=== PATIENT | female | born 1945 | race Two or more races ===

== ENCOUNTER 2021-02-25 15:19 | Inpatient (IN) | payer MEDICAID ==
[~2021-02-25] VITALS: Ht 165.1 cm; Wt 59.9 kg
[2021-02-25] MEDS ORDERED: SODIUM CHLORIDE 0.9% 1,000 ML IV ONE (16:45)
[2021-02-25 19:12] LABS: BASOPHILS % 0.8 % (0.0-2.0); EOSINOPHILS % 0.3 % (0.0-5.0); HEMATOCRIT. 39.3 % (36.0-48.0); HEMOGLOBIN. 13.7 g/dL (12.0-16.0); LYMPHOCYTES % 27.6 % (20.0-50.0); MEAN CORPUSCULAR HEMOGLOBIN 31.2 pg (28.0-32.0); MEAN CORPUSCULAR VOLUME 89.6 fL (81.0-99.0); MEAN PLATELET VOLUME 10.1 fl (7.4-10.4); MONOCYTES % 9.7 % (2.0-8.0); NEUTROPHILS % 61.6 % (40.0-76.0); PLATELET 193 x1000/uL (130-400); RED BLOOD CELL COUNT 4.38 mill/uL (4.2-5.4); RED CELL DISTRIBUTION WIDTH 14.2 % (11.6-14.6)
[2021-02-25 19:20] LABS: CHLORIDE 95 mEq/L (98-107)
[2021-02-25 21:58] LABS: CLARITY URINE CLEAR (CLEAR); COLOR URINE ORANGE (YELLOW); KETONES URINE TRACE (NEGATIVE); LEUKOCYTE ESTERASE URINE 1+ (NEGATIVE); NITRITE URINE NEGATIVE (NEGATIVE); OCCULT BLOOD URINE 1+ (NEGATIVE); PH URINE 6.5 (4.5-8.0); PROTEIN URINE TRACE (NEGATIVE)
[2021-02-25] MEDS ORDERED: CEFTRIAXONE 1 G PREMIX 50 ML IV ONE (22:15)
[2021-02-26 04:02] LABS: INR 1.1; PROTHROMBIN TIME 11.7 sec (9.6-11.0)
[2021-02-26] MEDS ORDERED: HEPARIN 25,000 UNITS PREMIX 250 ML IV PRN (04:45)
[2021-02-26] MEDS ORDERED: HEPARIN 5000 UNITS/ML VIAL IV NR (04:45)
[2021-02-26 09:00] VITALS: BP 110/70
[2021-02-26 09:05] VITALS: BP 110/70
[2021-02-26] MEDS ORDERED: ONDANSETRON HCL 4MG/2ML INJ IV PRN (09:15)
[2021-02-26] MEDS ORDERED: ACETAMINOPHEN 325MG TABLET PO PRN (09:15)
[2021-02-26] MEDS ORDERED: POTASSIUM CHLORIDE INJ 40 MEQ in DEXT 5% WATER 250 ML IV SCH (11:00)
[2021-02-26 12:00] VITALS: BP 125/68
[2021-02-26] MEDS ORDERED: HEPARIN BOLUS PRN aPTT <30 IV (12:00)
[2021-02-26] MEDS ORDERED: HEPARIN BOLUS PRN aPTT 30-44 IV (12:00)
[2021-02-26] MEDS ORDERED: ASPIRIN 81MG EC TABLET PO SCH (12:15)
[2021-02-26] MEDS ORDERED: LEVOTHYROXINE SODIUM 50MCG TABLET PO SCH (14:00)
[2021-02-26 16:00] VITALS: BP 117/63
[2021-02-26 20:00] VITALS: BP 114/61
[2021-02-26] MEDS ORDERED: METOPROLOL TARTRATE 25MG TABLET PO SCH (21:00)
[2021-02-26 21:01] VITALS: BP 114/61
== END 2021-02-26 22:10 | disposition short-term general hospital (02) | DRG 190 ==
LOC: ER 15:19 → MICUSO 02-26 02:05 → EDBEDREQ 02-26 02:09 → EDBEDREQSVC 02-26 02:09 → EDBEDREQDT 02-26 02:09 → EDBEDREQTM 02-26 02:09 → 8WST 02-26 07:26
PROVIDERS: ADMIT Internal Medicine Nephrology; ATTEND Internal Medicine Nephrology
DX: I21.4 Non-ST elevation (NSTEMI) myocardial infarction (principal); G93.41 Metabolic encephalopathy; E44.0 Moderate protein-calorie malnutrition; E87.1 Hypo-osmolality and hyponatremia; E87.8 Other disorders of electrolyte and fluid balance, not elsewhere classified; I11.0 Hypertensive heart disease with heart failure; I50.9 Heart failure, unspecified; R47.01 Aphasia; Z20.822 Contact with and (suspected) exposure to COVID-19; E87.6 Hypokalemia; E03.9 Hypothyroidism, unspecified; E80.6 Other disorders of bilirubin metabolism; I44.7 Left bundle-branch block, unspecified; Z88.5 Allergy status to narcotic agent; Z79.899 Other long term (current) drug therapy; Z88.0 Allergy status to penicillin; Z68.22 Body mass index [BMI] 22.0-22.9, adult; I25.2 Old myocardial infarction; Z79.890 Hormone replacement therapy
CPT/HCPCS: 36415; 70551; 71045; 80053; 81003; 83880; 84443; 84484; 85025; 87426; 93005; 99285; C1893; J0696; J1644; J3480; J7030; J7040; J7060

== ENCOUNTER 2021-03-14 17:41 | Emergency (ER) | payer MEDICAID, OTHER ==
[~2021-03-14] VITALS: Ht 160 cm; Wt 55.0 kg
[2021-03-14 19:36] LABS: BASOPHILS % 1.1 % (0.0-2.0); EOSINOPHILS % 0.1 % (0.0-5.0); HEMATOCRIT. 39.2 % (36.0-48.0); LYMPHOCYTES % 24.6 % (20.0-50.0); MEAN CORPUSCULAR HEMOGLOBIN 30.1 pg (28.0-32.0); MEAN CORPUSCULAR VOLUME 90.5 fL (81.0-99.0); MEAN PLATELET VOLUME 10.2 fl (7.4-10.4); NEUTROPHILS % 68.2 % (40.0-76.0); PLATELET 222 x1000/uL (130-400); RED BLOOD CELL COUNT 4.33 mill/uL (4.2-5.4); RED CELL DISTRIBUTION WIDTH 15.3 % (11.6-14.6)
[2021-03-14 19:44] LABS: CHLORIDE 102 mEq/L (98-107)
[2021-03-14] MEDS ORDERED: FUROSEMIDE 40MG/4ML VIAL IV ONE (21:30)
[2021-03-14] MEDS ORDERED: ASPIRIN 81MG TABLET PO ONE (21:30)
[2021-03-14 23:35] VITALS: BP 126/73
== END 2021-03-15 | disposition short-term general hospital (02) ==
LOC: ER 17:41 → CANBEDREQ 03-15 16:31
DX: I11.0 Hypertensive heart disease with heart failure (principal); I50.9 Heart failure, unspecified; I25.2 Old myocardial infarction; Z88.0 Allergy status to penicillin
CPT/HCPCS: 36415; 71045; 80053; 83880; 84484; 85025; 93005; 96374; 99291; J1940